=== PATIENT | female | born 1965 | race Caucasian/White ===

== ENCOUNTER 2022-07-13 14:12 | Observation (INO) ==
[2022-07-13 15:15] LABS: Basophils # 0.1 K/mcL (0.0-0.2); Basophils % 0.6 %; Eosinophils # 0.2 K/mcL (0.0-0.6); Eosinophils % 2.2 %; Hematocrit 39.1 % (35.3-44.9); Hemoglobin 12.8 g/dL (11.5-15.4); Immature Granulocytes % 0.3 % (0-4); Lymphocytes # 2.6 K/mcL (0.6-4.6); Lymphocytes % 33.3 %; Mean Corpuscular HGB Conc 32.7 g/dL (31.6-35.5); Mean Corpuscular Hemoglobin 28.7 pg (28.0-33.3); Mean Corpuscular Volume 87.7 fL (83.0-100.0); Mean Platelet Volume 10.1 fL (9.4-12.4); Monocytes # 0.7 K/mcL (0.0-1.3); Monocytes % 8.5 %; Neutrophils # 4.3 K/mcL (1.6-8.9); Platelet Count 249 K/mcL (140-400); Red Blood Count 4.46 M/mcL (3.82-4.97); Red Cell Distribution Width 13.6 % (11.5-14.5); Segmented Neutrophils % 55.1 %; White Blood Count 7.8 K/mcL (4.3-11.1)
[2022-07-13 15:37] LABS: BUN/Creatinine Ratio 27 (6-26); Blood Urea Nitrogen 18 mg/dL (6-20); Calcium 9.8 mg/dL (8.6-10.3); Carbon Dioxide 28 mEq/L (23-29); Chloride 104 mEq/L (98-107); Glucose 114 mg/dL (70-105); Magnesium 2.1 mg/dL (1.6-2.6); Osmolality,Calculated 289 (280-300); Potassium 3.9 mEq/L (3.5-5.1); Sodium 138 mEq/L (136-145)
[2022-07-13 15:49] LABS: Troponin I 0.06 ng/mL (< 0.04)
[2022-07-13] MEDS ORDERED: Aspirin 325 MG TABLET PO ONE (16:05)
[2022-07-13] MEDS ORDERED: Ondansetron 4 MG/2 ML VIAL IVP PRN (16:22)
[2022-07-13] MEDS ORDERED: Naloxone 0.4 MG/ML INJ IVP PRN (16:22)
[2022-07-13] MEDS ORDERED: Acetaminophen 325 MG TABLET PO PRN (16:22)
[2022-07-13] MEDS ORDERED: Nitroglycerin 0.4 MG TAB.SUBL SL PRN (16:28)
[2022-07-13 20:25] LABS: Adenovirus Not Detected (Not Detect); Bordetella Pertussis Not Detected (Not Detect); Chlamydophila pneumoniae Not Detected (Not Detect); Coronavirus 229E Not Detected (Not Detect); Coronavirus HKU1 Not Detected (Not Detect); Coronavirus NL63 Not Detected (Not Detect); Coronavirus OC43 Not Detected (Not Detect); Human Metapneumovirus Not Detected (Not Detect); Human Rhinovirus/Enterovirus Not Detected (Not Detect); Influenza A Subtype 2009 H1 Not Detected (Not Detect); Influenza B Not Detected (Not Detect); Mycoplasma pneumoniae Not Detected (Not Detect); Parainfluenza Virus 1 Not Detected (Not Detect); Parainfluenza Virus 2 Not Detected (Not Detect); Parainfluenza Virus 3 Not Detected (Not Detect); Parainfluenza Virus 4 Not Detected (Not Detect); Respiratory Syncytial Virus Not Detected (Not Detect); SARS-CoV-2 Not Detected (Not Detect)
[2022-07-13] MEDS: *HR* Heparin 5,000 UNIT/ML VIAL SQ SCH (21:57)
[2022-07-13] MEDS: Melatonin 3 MG TABLET PO PRN (22:45)
[2022-07-14 04:33] LABS: Estimated Average Glucose 126 mg/dl
[2022-07-14 04:43] LABS: Albumin 4.2 g/dL (3.5-5.7); Albumin/Globulin Ratio 1.8 (1.1-2.2); Bilirubin,Total 0.3 mg/dL (0.3-1.0); Calcium 9.9 mg/dL (8.6-10.3); Chol/HDL Ratio 3.8 (0-4.9); Globulin 2.3 g/dL (2.4-3.5); Magnesium 2.1 mg/dL (1.6-2.6); Phosphorous 4.3 mg/dL (2.7-4.5); Thyroid Stimulating Hormone 3.032 mcIU/mL (0.340-5.600); Total Protein 6.5 g/dL (6.4-8.9)
[2022-07-14] MEDS: *HR* Heparin 5,000 UNIT/ML VIAL SQ SCH ×3 (05:47→20:18)
[2022-07-14] MEDS ORDERED: Regadenoson 0.4 MG/5 ML SYRINGE IVP ONE (05:58)
[2022-07-14] MEDS: Aspirin Enteric Coated 81 MG Tablet PO SCH ×2 (14:00→15:44)
[2022-07-14] MEDS: rOPINIRole 0.25 MG TABLET PO SCH ×2 (14:01→15:46)
[2022-07-14] MEDS: Metoprolol XL (24 HR) Succ 25 MG TAB.ER.24H PO SCH ×2 (14:01→15:44)
[2022-07-14] MEDS: Melatonin 3 MG TABLET PO PRN (20:22)
[2022-07-15] MEDS: *HR* Heparin 5,000 UNIT/ML VIAL SQ SCH (06:03)
[2022-07-15 06:49] VITALS: BP 117/72; PULSE 60; TEMP 97.8; O2SAT 93
[2022-07-15] MEDS ORDERED: Regadenoson 0.4 MG/5 ML SYRINGE IVP ONE (06:53)
[2022-07-15] MEDS: rOPINIRole 0.25 MG TABLET PO SCH (10:02)
[2022-07-15] MEDS: Metoprolol XL (24 HR) Succ 25 MG TAB.ER.24H PO SCH (10:02)
[2022-07-15] MEDS: Aspirin Enteric Coated 81 MG Tablet PO SCH (10:02)
== END 2022-07-15 14:57 | disposition home or self-care (01) ==
LOC: EMEROOARM 14:12 → 3BNU 14:12 → SUATTDRO 16:29 → 3BNU 17:18
PROVIDERS: ADMIT Internal Medicine; ATTEND Internal Medicine